=== PATIENT | male | born 1980 | race Caucasian/White ===

== ENCOUNTER 2017-01-21 09:34 | Emergency (ER) | payer OTHER ==
--- NOTE | 2017-01-21 09:55 | Emergency Department Record ---
History of Present Illness - General Chief Complaint: Chest Pain Stated Complaint: CHEST PAIN Time Seen by Provider: 01/21/17 09:50 Source: Patient Mode of Arrival: Ambulatory Limitations: No limitations - History of Present Illness Initial Comments: 36 yo male presents to ED with a CC of "chest pain" and cough/congestion symptoms for the past 8-10 days. Patient reports that his symptoms last for 3- 4 seconds, and occurs intermittently for the past several days. Patient denies fevers, chills, or cough symptoms. Patient denies health problems at his baseline. Patient has a smoking history but stopped 2 years ago. MD Complaint: Chest pain Onset/Timin -: Days(s) Onset: During exertion, During rest Pain Location: Left chest Severity: Mild Severity scale (1-10): 3 Quality: Sharp Improves With: Nothing Worsens With: Nothing Treatments Prior to Arrival: None - Related Data Previous Rx's Medication Instructions Recorded Doxycycline Hyclate [Doxycycline] 100 mg PO BID #20 cap 01/21/17 Allergies Allergy/AdvReac Type Severity Reaction Status Date / Time amoxicillin [Amoxicillin] Allergy ANAPHYLAXIS Verified 01/21/17 09:42 Travel Screening - Travel/Exposure Within Last 30 Days Have you traveled within the last 30 days?: No - Travel/Exposure Within Last Year Have you traveled outside the [place] in the last year?: No - Additonal Travel Details Have you been exposed to anyone with a communicable illness?: No - Travel Symptoms Symptom Screening: None Review of Systems Constitutional: Denies: Chills, Fever, Malaise, Night sweats Eyes: Denies: Eye discharge, Eye pain ENT: Reports: Congestion. Denies: Ear pain, Epistaxis Respiratory: Reports: Cough. Denies: Dyspnea, Hemoptysis Cardiovascular: Reports: Chest pain. Denies: Dyspnea on exertion, Palpitations Endocrine: Denies: Fatigue, Heat or cold intolerance Gastrointestinal: Denies: Abdominal pain, Nausea, Vomiting Genitourinary: Denies: Incontinence, Retention, Testicular pain Musculoskeletal: Denies: Arthralgia, Back pain, Gout, Joint swelling Skin: Denies: Bruising, Change in color Neurological: Denies: Abnormal gait, Confusion, Headache, Seizure Psychiatric: Denies: Anxiety Hematological/Lymphatic: Denies: Anemia, Blood Clots Past Medical History - SOCIAL HISTORY Smoking Status: Former smoker Alcohol Use: Occassional Drug Use: None - RESPIRATORY Hx Respiratory Disorders: Yes Hx Asthma: Yes (childhood) - CARDIOVASCULAR Hx Cardio Disorders: No - NEURO Hx Neuro Disorders: No - GI Hx GI Disorders: Yes Hx Reflux: Yes Hx Hiatal Hernia: Yes - Hx Genitourinary Disorders: No - ENDOCRINE Hx Endocrine Disorders: No - MUSCULOSKELETAL Hx Musculoskeletal Disorders: No - PSYCH Hx Psych Problems: Yes Hx Anxiety: Yes - HEMATOLOGY/ONCOLOGY Hx Hematology/Oncology Disorders: No Family Medical History Any Significant Family History?: No Hx Cancer: Father Hx Stroke: Mother Physical Exam - General General Appearance: Alert, Oriented x3, Cooperative, No acute distress Limitations: No limitations - Head Head exam: Atraumatic, Normocephalic, Normal inspection Head exam detail: negative: Abrasion, Contusion, Parson's sign, General tenderness, Hematoma, Laceration - Eye Eye exam: Normal appearance. negative: Conjunctival injection, Periorbital swelling, Periorbital tenderness, Scleral icterus - ENT Ear exam: negative: Auricular hematoma, Auricular trauma Nasal Exam: negative: Active bleeding, Discharge, Dried blood, Foreign body Mouth exam: negative: Drooling, Laceration, Muffled voice, Tongue elevation - Neck Neck exam: Normal inspection. negative: Meningismus, Tenderness - Respiratory Respiratory exam: Normal lung sounds bilaterally. negative: Rales, Respiratory distress, Rhonchi, Stridor - Cardiovascular Cardiovascular Exam: Regular rate, Normal rhythm, Normal heart sounds - GI/Abdominal GI/Abdominal exam: Soft. negative: Rebound, Rigid, Tenderness - Rectal Rectal exam: Deferred - exam: Deferred - Extremities Extremities exam: Normal inspection. negative: Pedal edema, Tenderness - Back Back exam: Denies: CVA tenderness (R), CVA tenderness (L) - Neurological Neurological exam: Alert, Normal gait, Oriented X3 - Psychiatric Psychiatric exam: Normal affect, Normal mood - Skin Skin exam: Normal color. negative: Abrasion Type of lesion: negative: abrasion Course Vital Signs 01/21/17 09:35 Temperature 97.5 F L Pulse Rate 78 Respiratory 16 Rate Blood Pressure 141/94 Pulse Ox 100 - Reevaluation(s) Reevaluation #1: 01/21/17 09:54 EKG: NSR 77 Normal axis, normal intervals T wave inversion III only, early repolarization is present. Reevaluation #2: 01/21/17 09:55 Patient is PERC negative on examination. Reevaluation #3: 01/21/17 10:43 CXR: No acute process Reevaluation #4: 01/21/17 11:23 Patient was updated on all results thus far (normal) and plan for repeat Troponin at 13:20. Patient verbalizes understanding and reports that he is resting comfortably. Reevaluation #5: 01/21/17 13:55 Repeat Troponin is negative for myocardial damage. Patient appears stable for discharge at this time with Doxycycline for his URI symptoms. Medical Decision Making - Lab Data Result diagrams: 01/21/17 10:20 01/21/17 10:20 Disposition Disposition: Discharge Clinical Impression: Chest pain Qualifiers: Chest pain type: unspecified Qualified Code(s): R07.9 - Chest pain, unspecified URI (upper respiratory infection) Qualifiers: URI type: unspecified URI Qualified Code(s): J06.9 - Acute upper respiratory infection, unspecified Disposition: Home, Self-Care Condition: (2) Stable Instructions: Upper Respiratory Infection (ED) Additional Instructions: Return to ED if your symptoms worsen or if you have any concerns. Amoxicillin as directed. Follow-up with your family doctor in 3-5 days as directed. Prescriptions: Doxycycline Hyclate [Doxycycline] 100 mg PO BID #20 cap Forms: Patient Portal Access Time of Disposition: 13:42
[2017-01-21 10:30] LABS: BASO % 0.4 % (0-6); EOS % 2.8 % (0-6); GRAN % 61.3 % (47-80); HEMATOCRIT 45.3 % (42.0-52.0); HEMOGLOBIN 16.1 gm/dl (14.0-18.0); LYMPH % 26.5 % (16-45); MEAN CELL VOLUME 85.3 fl (81-97); MEAN CORPUSCULAR HEMOGLOBIN 30.3 pg (27-33); MEAN CORPUSCULAR HGB CONC 35.5 g/dl (32-36); MEAN PLATELET VOLUME 9.5 fl (7.4-10.4); PLATELET COUNT 286 K/uL (130-400); RED BLOOD COUNT 5.31 M/uL (4.40-5.70); RED CELL DISTRIBUTION WIDTH 12.4 % (11.5-14.5); WHITE BLOOD COUNT W/O DIFF 6.9 K/uL (4.2-12.2)
[2017-01-21 10:56] LABS: ALKALINE PHOSPHATASE 87 U/L (38-126); ALT/SGPT 73 U/L (21-72); ANION GAP 10.6 (7-16); AST/SGOT 51 U/L (17-59); BILIRUBIN,TOTAL 0.53 mg/dL (0.2-1.3); BLOOD UREA NITROGEN 9 mg/dL (9-20); C-REACTIVE PROTEIN 0.9 mg/dL (0.0-0.9); CARBON DIOXIDE 28.4 mmol/L (22-30); CREATININE 0.9 mg/dL (0.66-1.25); EST GLOMERULAR FILTRATION RATE > 60 ml/min; GLUCOSE,RANDOM 85 mg/dL (70-110); TOTAL PROTEIN 7.5 gm/dL (6.3-8.2)
[2017-01-21 11:05] LABS: TROPONIN I < 0.012 ng/mL (0.00-0.034)
[2017-01-21 11:11] LABS: ERYTHROCYTE SEDIMENTATION RATE 2 mm/hr (0-15)
== END 2017-01-21 14:07 | disposition home or self-care (01) ==
LOC: ER 09:34
DX: R07.9 Chest pain, unspecified (principal); J06.9 Acute upper respiratory infection, unspecified; Z87.891 Personal history of nicotine dependence
CPT/HCPCS: 71020; 80053; 84484; 85025; 85651; 86140; 93005; 93010; 99284

== ENCOUNTER 2017-03-04 10:17 | Emergency (ER) | payer BC, OTHER ==
[2017-03-04] MEDS ORDERED: 0.9 % SODIUM CHLORIDE 1,000 ML BAG IV ONE (10:29)
--- NOTE | 2017-03-04 10:48 | Emergency Department Record ---
History of Present Illness - General Chief Complaint: Abdominal Pain Stated Complaint: ABD PAIN Time Seen by Provider: 03/04/17 10:28 Source: Patient Mode of Arrival: Ambulatory Limitations: No limitations - History of Present Illness Initial Comments: 36 yo male presents with left lower abdominal pain. He noticed pain upon waking yesterday. He initial felt like he had a full bladder. He voided and the pain was mostly unchanged. No blood in the urine. No changes to the bowel movements. No diarrhea. The LLQ discomfort radiates to the suprapubic area. It has been fairly constant. He did anabel a hernia repaired on the left without any difficulty. He has not seen any groin bulging or swelling. Last night he again felt the urge to void and felt like his flow was weaker than normal. He has not had any retention. No testicular pain. No scrotal swelling. No nausea or fever. MD Complaint: Abdominal pain Onset/Timin -: Days(s) Location: Suprapubic, LLQ Radiation: Suprapubic Migration to: Suprapubic Severity: Moderate Quality: Aching Consistency: Constant Improves With: Nothing Worsens With: Movement Associated Symptoms: Dysuria - Related Data Previous Rx's Medication Instructions Recorded Hydrocodone/Acetaminophen [Paxton 1 each PO Q6H PRN #12 tablet 03/04/17 5-325 Tablet] Allergies Allergy/AdvReac Type Severity Reaction Status Date / Time amoxicillin [Amoxicillin] Allergy ANAPHYLAXIS Verified 03/04/17 10:24 Travel Screening - Travel/Exposure Within Last 30 Days Have you traveled within the last 30 days?: No - Travel/Exposure Within Last Year Have you traveled outside the [place] in the last year?: No - Additonal Travel Details Have you been exposed to anyone with a communicable illness?: No - Travel Symptoms Symptom Screening: None Review of Systems Constitutional: Denies: Chills, Fever, Weakness Eyes: Denies: Eye discharge ENT: Denies: Congestion, Throat pain Respiratory: Denies: Cough, Dyspnea, Hemoptysis, Wheezes Cardiovascular: Denies: Chest pain, Palpitations, Syncope Endocrine: Denies: Fatigue, Polydipsia, Polyuria Gastrointestinal: Reports: As per HPI, Abdominal pain. Denies: Diarrhea, Nausea , Vomiting Genitourinary: Denies: Dysuria, Frequency, Hematuria, Retention Musculoskeletal: Denies: Arthralgia, Back pain, Joint swelling, Myalgia, Neck pain Skin: Denies: Bruising, Change in color, Rash Neurological: Denies: Confusion, Headache Psychiatric: Denies: Anxiety Hematological/Lymphatic: Denies: Blood Clots, Easy bleeding, Easy bruising, Swollen glands Past Medical History - SOCIAL HISTORY Smoking Status: Former smoker Alcohol Use: None Drug Use: None - RESPIRATORY Hx Respiratory Disorders: Yes Hx Asthma: Yes (childhood) - CARDIOVASCULAR Hx Cardio Disorders: No Comment:: recent work up - NEURO Hx Neuro Disorders: No - GI Hx GI Disorders: Yes Hx Reflux: Yes Hx Hiatal Hernia: Yes - Hx Genitourinary Disorders: No - ENDOCRINE Hx Endocrine Disorders: No - MUSCULOSKELETAL Hx Musculoskeletal Disorders: No - PSYCH Hx Psych Problems: Yes Hx Anxiety: Yes - HEMATOLOGY/ONCOLOGY Hx Hematology/Oncology Disorders: No Family Medical History Any Significant Family History?: Yes Hx Cancer: Father Hx Stroke: Mother Physical Exam - General General Appearance: Alert, Oriented x3, Cooperative, No acute distress Limitations: No limitations - Head Head exam: Atraumatic, Normal inspection - Eye Eye exam: Normal appearance, PERRL. negative: Conjunctival injection - ENT ENT exam: Normal exam, Mucous membranes moist Ear exam: Normal external inspection Nasal Exam: Normal inspection Mouth exam: Normal external inspection Teeth exam: Normal inspection Throat exam: Normal inspection - Neck Neck exam: Normal inspection, Full ROM. negative: Tenderness - Respiratory Respiratory exam: Normal lung sounds bilaterally. negative: Respiratory distress - Cardiovascular Cardiovascular Exam: Regular rate, Normal rhythm, Normal heart sounds - GI/Abdominal GI/Abdominal exam: Soft, Tenderness (mild LLQ tenderness and suprapubic tenderness, no hernia, well healed prior scar). negative: Distended, Guarding, Hernia, Hypoactive bowel sounds, Rebound, Rigid - Rectal Rectal exam: Deferred - exam: Deferred - Extremities Extremities exam: Normal inspection, Full ROM, Normal capillary refill. negative: Pedal edema, Tenderness - Back Back exam: Reports: Normal inspection, Full ROM. Denies: CVA tenderness (R), CVA tenderness (L), Muscle spasm, Paraspinal tenderness, Rash noted, Tenderness , Vertebral tenderness - Neurological Neurological exam: Alert, Normal gait, Oriented X3 - Psychiatric Psychiatric exam: Normal affect, Normal mood - Skin Skin exam: Dry, Intact, Normal color, Warm Course Vital Signs 03/04/17 10:19 Temperature 98.4 F Pulse Rate 90 Respiratory 20 Rate Blood Pressure 133/82 Pulse Ox 98 - Reevaluation(s) Reevaluation #1: The patient was seen and examined No hernia Given the tenderness Labs and CT scan were ordered. 03/04/17 10:48 Reevaluation #2: The labs were reviewed. No acute changes in the CBC or BMP. 03/04/17 11:23 Reevaluation #3: The CT scan was read a epiploic appendagitis. No other acute process. The patient was informed of the results He will be treated with symptomatic treatment with recommendations to return in the next 24 hours if not improved. 03/04/17 13:35 Medical Decision Making - Lab Data Result diagrams: 03/04/17 10:50 03/04/17 10:50 Disposition Disposition: Discharge Clinical Impression: Epiploic appendagitis Abdominal pain Qualifiers: Abdominal location: unspecified location Qualified Code(s): R10.9 - Unspecified abdominal pain Disposition: Home, Self-Care Condition: (1) Good Instructions: Abdominal Pain (ED) Additional Instructions: Your CT scan shown EPIPLOIC APPENDAGITIS today Return to the ER if you have uncontrolled pain, fever, vomiting or any new symptoms or concerns You make take Tylenol or Motrin for discomfort. Stay well hydrated. Prescriptions: Hydrocodone/Acetaminophen [Paxton 5-325 Tablet] 1 each PO Q6H PRN #12 tablet PRN Reason: Abdominal Pain Referrals: Sean Haq [DOCTOR OF OSTEOPATH] - Forms: Patient Portal Access Time of Disposition: 13:38
[2017-03-04 10:56] LABS: BASO % 0.3 % (0-6); EOS % 1.3 % (0-6); GRAN % 68.5 % (47-80); HEMATOCRIT 45.5 % (42.0-52.0); HEMOGLOBIN 15.6 gm/dl (14.0-18.0); LYMPH % 20.4 % (16-45); MEAN CELL VOLUME 84.7 fl (81-97); MEAN CORPUSCULAR HEMOGLOBIN 29.1 pg (27-33); MEAN CORPUSCULAR HGB CONC 34.3 g/dl (32-36); MEAN PLATELET VOLUME 9.5 fl (7.4-10.4); MONO % 9.5 % (0-9); PLATELET COUNT 267 K/uL (130-400); RED BLOOD COUNT 5.37 M/uL (4.40-5.70); RED CELL DISTRIBUTION WIDTH 12.7 % (11.5-14.5); WHITE BLOOD COUNT W/O DIFF 7.1 K/uL (4.2-12.2)
[2017-03-04 11:10] LABS: ANION GAP 10.7 (7-16); BLOOD UREA NITROGEN 13 mg/dL (9-20); CARBON DIOXIDE 26.3 mmol/L (22-30); CREATININE 0.9 mg/dL (0.66-1.25); EST GLOMERULAR FILTRATION RATE > 60 ml/min; GLUCOSE,RANDOM 94 mg/dL (70-110)
[2017-03-04 11:41] LABS: URINE APPEARANCE CLEAR; URINE BILIRUBIN NEGATIVE (NEGATIVE); URINE BLOOD NEGATIVE (NEGATIVE); URINE COLOR YELLOW; URINE GLUCOSE (UA) NEGATIVE (NEGATIVE); URINE KETONE NEGATIVE (NEGATIVE); URINE LEUKOCYTE ESTERASE NEGATIVE (NEGATIVE); URINE NITRITE NEGATIVE (NEGATIVE); URINE PROTEIN NEGATIVE (NEGATIVE); URINE UROBILINOGEN 0.2 E.U./dL (0.20 - 1.00)
== END 2017-03-04 13:52 | disposition home or self-care (01) ==
LOC: ER 10:17
DX: K63.89 Other specified diseases of intestine (principal); R10.32 Left lower quadrant pain; R30.0 Dysuria
CPT/HCPCS: 99284 ×2; 85025; 80048; 81003; 74177; Q9967; J7030